=== PATIENT | female | born 1945 | race Caucasian/White ===

== ENCOUNTER 2016-02-07 14:07 | Inpatient (IN) | payer MEDICARE ==
[~2016-02-07] VITALS: Ht 152.4 cm; Wt 44.4 kg
[~2016-02-07 14:07] MED LIST: ADVAIR 250/28 DISKU1 IH; ASPIRIN E.C. 8181 MG PO; BYSTOLIC5 MG PO; COLACE 100100 MG/CAP PO; NORCO 325 MG-51 TAB PO; PRAVACHOL 40MG40 MG PO; PROVENTIL0.09 MG/A1 IH; SPIRIVA18 MCG IH; ZANTAC 15OMG150 MG PO
[2016-02-07 15:12] LABS: BASO # 0.1 (0.0-0.2); BASO % 0.5 % (0.0-2.0); EOS % 0.2 % (0-4.0); GRAN # 10.9 (1.4-6.5); GRAN % 83.7 % (42.2-75.2); LYMPH # 0.8 (1.2-3.4); LYMPH % 6.4 % (20.0-51.0); MEAN CELL VOLUME 96 fl (80.0-100.0); MEAN CORPUSCULAR HGB CONC 34 g/dl (33.0-37.0); MEAN PLATELET VOLUME 9.8 fl (7.4-10.4); MONO # 1.1 (0.1-0.6); MONO % 8.8 % (1.7-9.3); PLATELET COUNT 267 K/mm3 (130-400); RED BLOOD COUNT 3.62 M/mm3 (4.10-5.30)
[2016-02-07 15:13] LABS: HEMATOCRIT 34.6 % (37.0-47.0); HEMOGLOBIN 11.8 g/dl (12.5-16.0); MEAN CORPUSCULAR HEMOGLOBIN 33 pg (27.0-31.0)
[2016-02-07 15:27] LABS: ADJUSTED CALCIUM 9.1 mg/dL (8.4-10.2); ALANINE AMINOTRANSFERASE 45 U/L (9-52); ALKALINE PHOSPHATASE 94 U/L (50-136); ANION GAP 13 mmol/L (7-16); BILIRUBIN,TOTAL 0.6 mg/dL (0.0-1.0); BLOOD UREA NITROGEN 9 mg/dL (7-17); CALCIUM 9.1 mg/dL (8.4-10.2); CARBON DIOXIDE 27 mmol/L (22-30); CHLORIDE 95 mmol/L (98-107); CREATININE, serum 0.48 mg/dL (0.52-1.25); GLUCOSE 122 mg/dL (74-106); POTASSIUM 4.3 mmol/L (3.4-5.0); SODIUM 134 mmol/L (137-145); TOTAL PROTEIN 7.4 gm/dL (6.4-8.2)
[2016-02-07 15:36] LABS: B-TYPE NATRIURETIC PEPTIDE 561 pg/mL (0-125)
[2016-02-07 15:42] LABS: TROPONIN-I < 0.012 ng/mL (0.000-0.034)
[2016-02-07 16:01] LABS: ARTERIAL BLD GAS O2 SATURATION 92.1 % (92-100); ARTERIAL BLD GAS TCO2 CT 27.8; ARTERIAL BLOOD GAS BASE EXCESS 2.4 (-2-2); ARTERIAL BLOOD GAS HCO3 26.6 meq/L (22-26); ARTERIAL BLOOD GAS PHT 7.45 C (7.35-7.45); ARTERIAL BLOOD GAS PO2 57.8 mmHg (80-100); ARTERIAL BLOOD GAS PO2T 57.8 (80-100); ARTERIAL BLOOD GAS pH 7.45 (7.35-7.45); ATS? YES; OXYHEMOGLOBIN 88.1 %
[2016-02-07 16:07] LABS: C-REACTIVE PROTEIN 18.5 mg/dL (0.0-0.9)
[2016-02-07 18:15] VITALS: BP 141/59; PULSE 98; TEMP 99.8
[2016-02-07 18:49] LABS: INFLUENZA B NEGATIVE
[2016-02-07 19:42] VITALS: BP 134/51; PULSE 98; TEMP 97.9
[2016-02-07 23:21] VITALS: BP 109/56; PULSE 73; TEMP 97.9
[2016-02-08 03:26] VITALS: BP 112/50; PULSE 78; TEMP 97.9
[2016-02-08 07:11] VITALS: BP 101/82; PULSE 76; TEMP 97.6
[2016-02-08 08:27] LABS: BASO % 0.2 % (0.0-2.0); GRAN # 7.1 (1.4-6.5); GRAN % 79.6 % (42.2-75.2); LYMPH # 1.2 (1.2-3.4); LYMPH % 13.7 % (20.0-51.0); MEAN CELL VOLUME 98 fl (80.0-100.0); MEAN CORPUSCULAR HGB CONC 33 g/dl (33.0-37.0); MEAN PLATELET VOLUME 10.6 fl (7.4-10.4); MONO # 0.6 (0.1-0.6); MONO % 6.2 % (1.7-9.3); PLATELET COUNT 306 K/mm3 (130-400); RED BLOOD COUNT 3.57 M/mm3 (4.10-5.30); REDCELL DISTRIBUTION WIDTH-CV 13.1 % (11.5-14.5); WHITE BLOOD COUNT 8.9 K/mm3 (4.8-10.8)
[2016-02-08 08:29] LABS: HEMATOCRIT 34.9 % (37.0-47.0); HEMOGLOBIN 11.6 g/dl (12.5-16.0); MEAN CORPUSCULAR HEMOGLOBIN 32 pg (27.0-31.0)
[2016-02-08 08:41] LABS: ANION GAP 9 mmol/L (7-16); BLOOD UREA NITROGEN 8 mg/dL (7-17); CALCIUM 8.8 mg/dL (8.4-10.2); CARBON DIOXIDE 29 mmol/L (22-30); CHLORIDE 100 mmol/L (98-107); CREATININE, serum 0.42 mg/dL (0.52-1.25); GLUCOSE 117 mg/dL (74-106); POTASSIUM 4.5 mmol/L (3.4-5.0); SODIUM 138 mmol/L (137-145)
[2016-02-08 08:59] LABS: TROPONIN-I < 0.012 ng/mL (0.000-0.034)
[2016-02-08 11:28] VITALS: BP 109/46; PULSE 79; TEMP 97.6
[2016-02-08 16:57] VITALS: BP 119/50; PULSE 86; TEMP 97.9
[2016-02-08 19:39] VITALS: BP 122/50; PULSE 80; TEMP 98.6
[2016-02-08 22:57] VITALS: BP 133/51; PULSE 98; TEMP 98.2
[2016-02-09 02:21] VITALS: BP 135/62; PULSE 72; TEMP 97.7
[2016-02-09 08:42] VITALS: BP 112/57; PULSE 93; TEMP 97.9
[2016-02-09] MEDS ORDERED: DOXYCYCLINE 10100 MG PO (10:33)
[2016-02-09] MEDS ORDERED: IPRATROPIUM BROM3 M1 IH (10:34)
[2016-02-09] MEDS ORDERED: NICODERM C21 MG/PATC TD (10:34)
[2016-02-09] MEDS ORDERED: PREDNISONE20 MG PO (10:36)
[2016-02-09 11:50] VITALS: BP 147/58; PULSE 98; TEMP 98.2
== END 2016-02-09 14:11 | disposition home or self-care (01) | DRG 189 ==
LOC: COL.ER 14:07 → MEDICAL 16:11
PROVIDERS: Emergency Medicine; Physician Assistant
DX: J96.01 Acute respiratory failure with hypoxia (principal); J18.9 Pneumonia, unspecified organism; E43 Unspecified severe protein-calorie malnutrition; J44.1 Chronic obstructive pulmonary disease with (acute) exacerbation; Z68.1 Body mass index [BMI] 19.9 or less, adult; E78.5 Hyperlipidemia, unspecified; M75.92 Shoulder lesion, unspecified, left shoulder; Z66 Do not resuscitate
CPT/HCPCS: OP; 99222-AI; 99232-AI; 99239; J1650; J2920; J2930; J7030

== ENCOUNTER → 2017-02-10 | Outpatient (CLI) | payer MEDICARE ==
[~2017-02-10] MED LIST changes: +DOXYCYCLINE 10100 MG PO; +IPRATROPIUM BROM3 M1 IH; +NICODERM C21 MG/PATC TD; +PREDNISONE20 MG PO
== END ==
LOC: MC.RAD 13:56
DX: Z12.31 Encounter for screening mammogram for malignant neoplasm of breast (principal)

== ENCOUNTER 2018-10-10 13:41 | Inpatient (IN) | payer MEDICARE ==
[~2018-10-10] VITALS: Ht 149.9 cm; Wt 46.8 kg
[2018-10-10] MEDS ORDERED: SPIRIVA RE2.5 MCG/Ac IH (14:13)
[2018-10-10] MEDS ORDERED: 00186-0370-20 IH (14:14)
[2018-10-10] MEDS ORDERED: ZANTAC 300300 MG PO (14:14)
[2018-10-10] MEDS ORDERED: MULTI VITAMINS1 TAB PO (14:15)
[2018-10-10] MEDS ORDERED: CARDIZEM 60MG T60 MG PO (14:15)
[2018-10-10 14:25] LABS: ARTERIAL BLD GAS TCO2 CT 29.4; ARTERIAL BLOOD GAS BASE EXCESS 0.5 (-2-2); ARTERIAL BLOOD GAS HCO3 27.7 meq/L (22-26); ARTERIAL BLOOD GAS PCO2 54.7 mmHg (35-45); ARTERIAL BLOOD GAS PO2 95.1 mmHg (80-100); ARTERIAL BLOOD GAS pH 7.32 (7.35-7.45)
[2018-10-10 14:32] LABS: BASO # 0.1 (0.0-0.2); BASO % 0.5 % (0.0-2.0); EOS % 0.2 % (0-4.0); GRAN # 10.5 (1.4-6.5); GRAN % 78.4 % (42.2-75.2); HEMATOCRIT 38.3 % (37.0-47.0); HEMOGLOBIN 12.4 g/dl (12.5-16.0); LYMPH # 1.6 (1.2-3.4); LYMPH % 11.9 % (20.0-51.0); MEAN CELL VOLUME 96 fl (80.0-100.0); MEAN CORPUSCULAR HEMOGLOBIN 31 pg (27.0-31.0); MEAN CORPUSCULAR HGB CONC 32 g/dl (33.0-37.0); MONO # 1.2 (0.1-0.6); MONO % 8.7 % (1.7-9.3); PLATELET COUNT 341 K/mm3 (130-400); REDCELL DISTRIBUTION WIDTH-CV 12.3 % (11.5-14.5)
[2018-10-10 14:43] LABS: ALBUMIN 4.4 gm/dL (3.5-5.0); BILIRUBIN,TOTAL 0.5 mg/dL (0.0-1.0); CALCIUM 9.2 mg/dL (8.4-10.2); CREATININE, serum 0.33 (0.52-1.25); POTASSIUM 4.3 mmol/L (3.4-5.0); TOTAL PROTEIN 7.5 gm/dL (6.4-8.2)
[2018-10-10 17:50] VITALS: BP 124/56; PULSE 84
--- NOTE | 2018-10-10 19:00 | NUR ---
Patient arrived to floor a little before 1800. She was having shortness of air when she arrived. She was placed on BIPAP right away and has been tolerating it well. She seems to be more comfortable on the BIPAP than the oxymask. No other changes at this time. Call light within reach. Admission assessment completed.
--- NOTE | 2018-10-10 19:50 | NUR ---
Resting in bed with bipap in place. Assessment complete. Bases bilaterally diminshed, upper lobes wheezing with inspiration present. Denies shortness of breath with bipap in place. Assisted to commode. Dyspnea with movement. Pulses strong throughout. No edema noted. Bowels active x4. Patient drowsy, alert and orientated when awake. Denies pain at this time. Denies needs. Call light in reach.
[2018-10-10 20:00] VITALS: BP 126/54; PULSE 81; TEMP 97.9
[2018-10-11] VITALS: BP 107/46; PULSE 66; TEMP 98.4
--- NOTE | 2018-10-11 00:09 | NUR ---
Resting in bed. Denies needs. Call light in reach.
--- NOTE | 2018-10-11 00:35 | NUR ---
Bipap alarming.Patient reported dry mouth and would like to remove bipap for water. Assisted patient with removing bipap and applying oxygen while drinking water. Patient appears short of air with labored breathing. Patient 89% on 3 liters. Increased to 4 liters, up to 93%. Patient states "I feel like I need a treatment." Patient lung sounds coarse throughout with wheezing on expiration. Contacted respiratory for breathing treatment. Denies other needs at this time. Will monitor.
[2018-10-11 01:18] LABS: COLLECTION METHOD CLEAN CATCH
[2018-10-11 01:25] LABS: MUCOUS Present /lpf; PH 6 (5-8); SQUAMOUS EPITHELIAL None Seen /hpf; URINE APPEARANCE Clear; URINE BACTERIA None Seen /hpf; URINE BILIRUBIN Negative (NEGATIVE); URINE BLOOD Negative (NEGATIVE); URINE COLOR Yellow; URINE GLUCOSE Negative (NEGATIVE); URINE KETONE 1+ (NEGATIVE); URINE LEUKOCYTE ESTERASE Negative (NEGATIVE); URINE NITRATE Negative (NEGATIVE); URINE PROTEIN(semi-quant) 1+ (NEGATIVE); URINE UROBILINOGEN Negative (NEGATIVE)
--- NOTE | 2018-10-11 04:34 | NUR ---
SALES INSPECTOR reports patient oxygen saturations 83%. Upon assessment of patient. Oximask off. Patient educated on importance of oxygen. Allowed staff to replace oximask. Patient 92% with 4 liters. Will continue to monitor.
[2018-10-11 04:45] VITALS: BP 144/51; PULSE 86; TEMP 98.3
--- NOTE | 2018-10-11 06:26 | NUR ---
Patient resting in bed this AM. Patient refused bipap most of the night. Currently on 4 liters oximask at 92%. Patient coughing more this morning, thick yellow/green sputum. Otherwise uneventful night. Resting in bed this AM. Call light in reach.
[2018-10-11 07:21] LABS: BASO % 0.1 % (0.0-2.0); GRAN # 7.7 (1.4-6.5); GRAN % 87.8 % (42.2-75.2); HEMOGLOBIN 11.1 g/dl (12.5-16.0); LYMPH # 0.9 (1.2-3.4); LYMPH % 10.4 % (20.0-51.0); MEAN CELL VOLUME 97 fl (80.0-100.0); MEAN CORPUSCULAR HEMOGLOBIN 31 pg (27.0-31.0); MEAN CORPUSCULAR HGB CONC 32 g/dl (33.0-37.0); MEAN PLATELET VOLUME 10.2 fl (7.4-10.4); MONO # 0.1 (0.1-0.6); MONO % 1.4 % (1.7-9.3); PLATELET COUNT 294 K/mm3 (130-400); RED BLOOD COUNT 3.58 M/mm3 (4.10-5.30); REDCELL DISTRIBUTION WIDTH-CV 12.3 % (11.5-14.5)
[2018-10-11 07:22] LABS: HEMATOCRIT 34.6 % (37.0-47.0)
--- NOTE | 2018-10-11 07:28 | NUR ---
Report given to CHINYERE Reynoso
[2018-10-11 07:33] VITALS: BP 127/42; PULSE 78; TEMP 97.9
[2018-10-11 07:33] LABS: CALCIUM 8.4 mg/dL (8.4-10.2); CREATININE, serum 0.31 (0.52-1.25); POTASSIUM 4.1 mmol/L (3.4-5.0)
[2018-10-11 11:15] VITALS: BP 123/43; PULSE 85; TEMP 98.3
--- NOTE | 2018-10-11 11:30 | NUR ---
Patient resting in bed at this time, call light in reach. Patient educated on the need to use the pickle. She voiced understanding. Patient smokes a pack of cigarettes a day and was started on a nicoderm patch this morning. Will continue to monitor. Patient was seen by Dr. Salazar see new orders for decrease of solumedrol.
--- NOTE | 2018-10-11 11:52 | NUR ---
SW met with the patient to discuss discharge plan. The patient lives in [place] with her oldest son, Estiven Ibarra Jr. 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 She states that her other son, Garfield, lives a street over from her and checks in on her daily. She reports independence with ADLs, does not have any assistive devices, and has home oxygen from [facility]. The patient's PCP is Dr. Carlos Reynolds and she receives her medications from [facility] and by delivery through [facility]. She reports no difficulties obtaining her meds. The patient does not have advanced directives in EMR, but she states that she believes she may have them completed. She states she would have designated her son, Magdi Ibarra (ph#[phone]). The patient plans to return home with her son upon discharge. PT/OT have been ordered. SW to continue to follow.
--- NOTE | 2018-10-11 12:30 | NUR ---
Patient has IV to Right AC and she is right handed so she has been having difficulty not bending that arm. Every time she bends it, this causes the alarm to IV to go off. Patient was educated on the need to not bend that arm, but instead using her left arm to prevent this from happening. She voiced understanding and said that she would try to use the left arm. Nicoderm patch was placed to patient's left shoulder. Patient was observed using her pickle appropriatly and RT saw patient this morning. Will continue to monitor. She is refusing her BIPAP, but has agreed to use her oxygen mask.
[2018-10-11 16:55] VITALS: BP 128/48; PULSE 81; TEMP 98.3
--- NOTE | 2018-10-11 18:00 | NUR ---
Patient is transferring to room 311 from surgical 343 at this time, she is alert/oriented, denies needs, I received report from CHINYERE Petersen
[2018-10-11 19:40] VITALS: BP 119/40; PULSE 81; TEMP 98.2
--- NOTE | 2018-10-11 21:00 | NUR ---
Patient assessed at this time. Alert and oriented x 4, and able to make needs known. Denies having pain and discomfort. Peripheral IV to right AC flushed. Site is without redness, warmth, swelling, and pain. Denies SOB and dyspnea. LS CTA in left lung griggs, CTA in right upper, and diminished in right middle and lower. On oxygen at 2 L/min via NC. Occasional moist cough, unable to produce sputum. Telemetry in place. HRR. Capillary refill less than 3 seconds. Non-tenting skin turgor. BSAx 4. Abdomen soft and non-tender. No edema. Voices no questions, needs, or concerns. Resting in bed wtih call light within reach.
[2018-10-12 00:01] VITALS: BP 120/43; PULSE 81; TEMP 98
--- NOTE | 2018-10-12 04:46 | NUR ---
Patient has been resting in bed with eyes closed. Denies having pain and discomfort. Occasional moist cough. Continues on oxygen at 2 L/min via NC. Call light is within reach.
[2018-10-12 05:11] VITALS: BP 110/77; PULSE 84; TEMP 98.3
--- NOTE | 2018-10-12 08:30 | NUR ---
Assessment complete. Pt sitting up in bed, A&O x 4. Breath sounds slightly coarse in bases bilat. O2 at 2 L/min via NC. Pt denies pain at this time. Saline lock IV to right AC without s/s of complications. No further needs reported. Call light in reach.
[2018-10-12 08:31] VITALS: BP 113/45; PULSE 94; TEMP 98
[2018-10-12] MEDS ORDERED: NICODERM C21 MG/PATC TD (09:23)
[2018-10-12] MEDS ORDERED: PREDNISONE20 MG PO (09:24)
--- NOTE | 2018-10-12 10:06 | NUR ---
[facility] followed up with patient after rounds to discuss discharge. Patient will discharge home today with her family. Patient was seen by PT/OT and there are no recommended services. Patient denies concerns returning home. [facility] informed patient that she is home and needs more help that her family cannot provide, her PCP can order home health services. No discharge needs.
--- NOTE | 2018-10-12 11:46 | NUR ---
Discharge instructions reviewed with pt regarding new medications, smoking cessation, and follow-up appointments. Pt verbalizes understanding, getting dressed at this time, agrees to return O2 tank later today so pt can take O2 during transportation home.
--- NOTE | 2018-10-12 12:00 | NUR ---
Pt discharged home, escorted out of facility via WC accompanied by this nurse and pt's son. O2 tank provided for ride home. Pt's son agrees to bring tank back this afternoon to ED.
== END 2018-10-12 12:00 | disposition home or self-care (01) | DRG 189 ==
LOC: COL.ER 13:41 → SURG 15:48 → MEDICAL 10-11 18:38
PROVIDERS: Family Medicine; Nurse Practitioner Family; ADMIT Hospitalist
PROC: 5A09357 Assistance with Respiratory Ventilation, Less than 24 Consecutive Hours, Continuous Positive Airway Pressure (ICD-10-PCS; principal; 2018-10-10)
DX: J96.21 Acute and chronic respiratory failure with hypoxia (principal); J44.1 Chronic obstructive pulmonary disease with (acute) exacerbation; E87.1 Hypo-osmolality and hyponatremia; E44.0 Moderate protein-calorie malnutrition; Z68.1 Body mass index [BMI] 19.9 or less, adult; E87.2 Acidosis; I10 Essential (primary) hypertension; D72.829 Elevated white blood cell count, unspecified; I25.10 Atherosclerotic heart disease of native coronary artery without angina pectoris; E78.5 Hyperlipidemia, unspecified; K21.9 Gastro-esophageal reflux disease without esophagitis; R53.81 Other malaise; F17.210 Nicotine dependence, cigarettes, uncomplicated; Z99.81 Dependence on supplemental oxygen; Z79.51 Long term (current) use of inhaled steroids; Z79.82 Long term (current) use of aspirin; Z83.6 Family history of other diseases of the respiratory system
CPT/HCPCS: 99222-AI; 99233-AI; 99239; A4216; J0456; J0696; J1650; J2920; J2930; J7030; J7050; J7512

== ENCOUNTER → 2020-06-03 | Outpatient (CLI) | payer MEDICARE, MEDICAID ==
[~2020-06-03] MED LIST changes: +00186-0370-20 IH; +CARDIZEM 60MG T60 MG PO; +MULTI VITAMINS1 TAB PO; +SPIRIVA RE2.5 MCG/Ac IH; +ZANTAC 300300 MG PO
== END ==
LOC: COL.RAD 13:21
DX: Z12.2 Encounter for screening for malignant neoplasm of respiratory organs (principal); F17.210 Nicotine dependence, cigarettes, uncomplicated

== ENCOUNTER 2021-10-12 09:02 | Emergency (ER) | payer MEDICARE, MEDICAID ==
[~2021-10-12] VITALS: Ht 152.4 cm; Wt 38.6 kg
[2021-10-12 09:09] VITALS: BP 170/76; TEMP 97.1
[2021-10-12] MEDS ORDERED: NORCO 325 MG-51 TAB PO (10:44)
[2021-10-12 11:00] VITALS: PULSE 76
== END 2021-10-12 11:00 | disposition home or self-care (01) ==
LOC: COL.ER 09:02
DX: S22.039A Unspecified fracture of third thoracic vertebra, initial encounter for closed fracture (principal); S22.049A Unspecified fracture of fourth thoracic vertebra, initial encounter for closed fracture; F17.200 Nicotine dependence, unspecified, uncomplicated; Z28.311 Partially vaccinated for COVID-19; W18.2XXA Fall in (into) shower or empty bathtub, initial encounter
CPT/HCPCS: J2270

== ENCOUNTER → 2021-11-04 | Outpatient (CLI) | payer MEDICARE, MEDICAID | LOC: COL.RAD 12:18 | DX: S22.050A Wedge compression fracture of T5-T6 vertebra, initial encounter for closed fracture (principal); X58.XXXA Exposure to other specified factors, initial encounter ==